=== PATIENT | female | born 1990 | race Caucasian/White ===

== ENCOUNTER 2019-03-01 23:13 | Emergency (ER) | payer OTHER ==
[~2019-03-01] VITALS: Ht 165.1 cm; Wt 56.7 kg
[2019-03-01 23:32] VITALS: BP 104/70
[2019-03-02] MEDS ORDERED: LEVOFLOXACIN (750 MG) 750 MG TABLET ONE
[2019-03-02] MEDS ORDERED: TDAP [DIPH/PERTUSSIS/TET] 0.5 ML VIAL IM ONE (00:02)
[2019-03-02] MEDS: LEVOFLOXACIN (750 MG) 750 MG TABLET PO ONE (00:05)
[2019-03-02] MEDS: TDAP [DIPH/PERTUSSIS/TET] 0.5 ML VIAL IM ONE (00:06)
== END 2019-03-02 00:27 | disposition home or self-care (01) ==
LOC: ER 23:23
DX: S91.135A Puncture wound without foreign body of left lesser toe(s) without damage to nail, initial encounter (principal); Z88.2 Allergy status to sulfonamides; Z23 Encounter for immunization; W22.8XXA Striking against or struck by other objects, initial encounter; Y93.89 Activity, other specified; Y92.89 Other specified places as the place of occurrence of the external cause; Y99.8 Other external cause status
CPT/HCPCS: 90715